=== PATIENT | male | born 1960 | race Hispanic/Latino ===

== ENCOUNTER 2023-01-09 15:28 | Inpatient (IN) | payer SELFPAY ==
[~2023-01-09] VITALS: Ht 175.3 cm; Wt 79.0 kg
[2023-01-09] VITALS (18 sets, daily range): BP systolic 85–120; BP diastolic 56–67
[2023-01-09] MEDS ORDERED: SODIUM CHLORIDE 0.9% 1000ML 1,000 ML IV ONE (15:45)
[2023-01-09] MEDS ORDERED: CEFTRIAXONE 1 GM VIAL IV ONE (15:45)
[2023-01-09 15:58] LABS: BASOPHILS # (AUTO) 0.1 (0.0-0.1); BASOPHILS % 0.7 % (0.0-1.0); EOSINOPHILS % 0.1 % (0.0-6.0); HEMATOCRIT 34.9 % (38.2-49.6); HEMOGLOBIN 11.6 g/dL (14.0-18.0); LYMPHOCYTES # (AUTO) 0.4 (1.0-3.2); LYMPHOCYTES % 2.7 % (18.0-39.1); MEAN CORPUSCULAR HGB CONC 33.2 g/dL (31-35); MEAN CORPUSCULAR VOLUME 96.4 fL (81-99); MONOCYTES # (AUTO) 0.8 (0.2-0.8); MONOCYTES % 5.6 % (4.4-11.3); NEUTROPHILS # (AUTO) 13.7 (2.1-6.9); NEUTROPHILS % 90.4 % (38.7-80.0); PLATELET COUNT 383 x10e3/uL (140-360); RED BLOOD COUNT 3.62 x10e6/uL (4.3-5.7); RED CELL DISTRIBUTION WIDTH 12.3 % (11.7-14.4)
[2023-01-09] MEDS ORDERED: ACETAMINOPHEN 325 MG TAB PO ONE (16:00)
[2023-01-09 16:05] LABS: INR 1.13; PROTHROMBIN TIME 14.7 seconds (11.9-14.5)
[2023-01-09 16:06] LABS: PARTIAL THROMBOPLASTIN TIME 36.3 seconds (23.8-35.5)
[2023-01-09] MEDS ORDERED: CEFTRIAXONE 1 GM VIAL ONE (16:06)
[2023-01-09 16:14] LABS: ALBUMIN 3.5 g/dL (3.5-5.0); ALBUMIN/GLOBULIN RATIO 0.6 (0.8-2.0); ANION GAP 16.2 mmol/L (8-16); CALCIUM 10.1 mg/dL (8.4-10.2); CREATININE, SERUM 4.5 mg/dL (0.72-1.25)
[2023-01-09 16:16] LABS: POTASSIUM 6.2 mmol/L (3.5-5.1)
[2023-01-09] MEDS ORDERED: DEXTROSE 50% SYRINGE 50 ML IV STA (16:16)
[2023-01-09] MEDS ORDERED: ALBUTEROL SULF 0.083% NEB SOLN 3 ML NEB NEB STA (16:16)
[2023-01-09 16:22] LABS: CLARITY,URINE HAZY (CLEAR); COLOR,URINE YELLOW (YELLOW); KETONES,URINE NEGATIVE (NEGATIVE); LEUKOCYTE ESTERASE ,URINE MODERATE (NEGATIVE); NITRITE,URINE NEGATIVE (NEGATIVE); PROTEIN,URINE DIPSTICK NEGATIVE (NEGATIVE); URINE UROBILINOGEN 0.2 mg/dL (0.2 - 1)
[2023-01-09] MEDS ORDERED: CALCIUM GLUC 1 G/50 ML NACL 100 ML IV ONE (16:30)
[2023-01-09] MEDS ORDERED: INSULIN REGULAR, HUMAN 100 UNIT/1 ML IV ONE (16:30)
[2023-01-09] MEDS ORDERED: SODIUM BICARBONATE 8.4% INJ 50 ML SYR IV ONE (16:30)
[2023-01-09 16:48] LABS: BACTERIA,URINE MODERATE /HPF; MUCUS,URINE MANY (RARE); WBC,URINE (MAN) 21-50 /HPF (0-5)
[2023-01-09] MEDS ORDERED: ONDANSETRON HCL INJ 2MG/ML 2ML 2 MG/ML VIAL IV PRN (17:00)
[2023-01-09] MEDS ORDERED: SOD POLYSTYRENE SULFONATE SUSP 15 GM/60 ML BTL PO ONE (17:15)
[2023-01-09] MEDS ORDERED: FUROSEMIDE INJ 10 MG/ML 4 ML VIAL IV ONE (17:15)
[2023-01-09] MEDS ORDERED: ZOLPIDEM TARTRATE 5 MG TAB PO PRN (17:15)
[2023-01-09] MEDS ORDERED: Vancomycin IV 1 GM in SODIUM CHLORIDE 0.9% 250ML 250 ML IV ONE (17:15)
[2023-01-09] MEDS ORDERED: ACETAMINOPHEN 325 MG TAB PO PRN (17:30)
[2023-01-09 17:54] LABS: ABG HCO3 17 mmol/L (22-26); ABG PCO2 28 mmHg (35-45); ABG PO2 88 mmHg (80-105); ABG TCO2 18
[2023-01-09] MEDS ORDERED: PHENAZOPYRIDINE HCL 100 MG TAB PO PRN (19:15)
[2023-01-09] MEDS ORDERED: Morphine 4mg INJECTION 4 MG/ML INJ IV PRN (19:15)
[2023-01-09] MEDS: PHENAZOPYRIDINE HCL 100 MG TAB PO PRN (19:40)
[2023-01-09] MEDS: SODIUM CHLORIDE 0.9% 1000ML 1,000 ML IV SCH (19:41)
[2023-01-09] MEDS: TAMSULOSIN HCL 0.4 MG CAP PO SCH (19:41)
[2023-01-09] MEDS: Morphine 4mg INJECTION 4 MG/ML INJ IV PRN ×2 (19:42→23:20)
[2023-01-10] VITALS (46 sets, daily range): BP systolic 79–135; BP diastolic 53–84
[2023-01-10] MEDS ORDERED: FLOMAX0.4 MG PO (00:46)
[2023-01-10] MEDS ORDERED: METOPROLOL SUCC25 MG PO (00:46)
[2023-01-10] MEDS ORDERED: LISINOPRIL10 MG PO (00:46)
[2023-01-10] MEDS: SODIUM CHLORIDE 0.9% 1000ML 1,000 ML IV SCH ×3 (02:16→22:28)
[2023-01-10] MEDS: PHENAZOPYRIDINE HCL 100 MG TAB PO PRN ×2 (02:16→17:23)
[2023-01-10] MEDS: Morphine 4mg INJECTION 4 MG/ML INJ IV PRN ×2 (04:36→08:30)
[2023-01-10 07:12] LABS: BASOPHILS # (AUTO) 0.1 (0.0-0.1); BASOPHILS % 0.9 % (0.0-1.0); EOSINOPHILS # (AUTO) 0.1 (0.0-0.4); EOSINOPHILS % 0.4 % (0.0-6.0); HEMATOCRIT 30.9 % (38.2-49.6); HEMOGLOBIN 10.3 g/dL (14.0-18.0); MEAN CORPUSCULAR HEMOGLOBIN 32.2 pg (28-32); MEAN CORPUSCULAR HGB CONC 33.3 g/dL (31-35); MEAN CORPUSCULAR VOLUME 96.6 fL (81-99); MONOCYTES # (AUTO) 1.1 (0.2-0.8); MONOCYTES % 7.5 % (4.4-11.3); NEUTROPHILS # (AUTO) 11.7 (2.1-6.9); NEUTROPHILS % 83.7 % (38.7-80.0); PLATELET COUNT 341 x10e3/uL (140-360); RED CELL DISTRIBUTION WIDTH 12.5 % (11.7-14.4)
[2023-01-10 07:51] LABS: ALBUMIN 2.8 g/dL (3.5-5.0); ALBUMIN/GLOBULIN RATIO 0.6 (0.8-2.0); ANION GAP 14.7 mmol/L (8-16); CALCIUM 9.1 mg/dL (8.4-10.2); CREATININE, SERUM 3.67 mg/dL (0.72-1.25); POTASSIUM 5.7 mmol/L (3.5-5.1)
[2023-01-10] MEDS: HYDROCODONE/APAP 5MG-325MG TAB PO PRN ×3 (12:30→20:40)
[2023-01-10] MEDS ORDERED: FUROSEMIDE INJ 10 MG/ML 4 ML VIAL IV ONE (17:45)
[2023-01-10] MEDS ORDERED: SOD POLYSTYRENE SULFONATE SUSP 15 GM/60 ML BTL PO ONE (17:45)
[2023-01-10] MEDS: TAMSULOSIN HCL 0.4 MG CAP PO SCH (20:38)
[2023-01-11] VITALS (12 sets, daily range): BP systolic 78–103; BP diastolic 54–64
[2023-01-11] MEDS: HYDROCODONE/APAP 5MG-325MG TAB PO PRN ×3 (00:48→11:25)
[2023-01-11] MEDS: SODIUM CHLORIDE 0.9% 1000ML 1,000 ML IV SCH ×2 (01:00→06:24)
[2023-01-11] MEDS: PHENAZOPYRIDINE HCL 100 MG TAB PO PRN (01:40)
[2023-01-11 05:25] LABS: ANION GAP 14.8 mmol/L (8-16); CALCIUM 8.9 mg/dL (8.4-10.2); CREATININE, SERUM 3.19 mg/dL (0.72-1.25); POTASSIUM 4.8 mmol/L (3.5-5.1)
== END 2023-01-11 12:41 | disposition home or self-care (01) | DRG 726 ==
LOC: ER 15:32 → ERHOLD 16:56 → ICU 18:25
PROVIDERS: ADMIT Internal Medicine; ATTEND Internal Medicine
PROC: 0T9B70Z Drainage of Bladder with Drainage Device, Via Natural or Artificial Opening (ICD-10-PCS; principal; 2023-01-09)
DX: N40.1 Benign prostatic hyperplasia with lower urinary tract symptoms (principal); N17.9 Acute kidney failure, unspecified; E87.20 Acidosis, unspecified; N13.8 Other obstructive and reflux uropathy; N39.0 Urinary tract infection, site not specified; E87.1 Hypo-osmolality and hyponatremia; R33.8 Other retention of urine; I12.9 Hypertensive chronic kidney disease with stage 1 through stage 4 chronic kidney disease, or unspecified chronic kidney disease; N18.9 Chronic kidney disease, unspecified; E87.5 Hyperkalemia; E11.22 Type 2 diabetes mellitus with diabetic chronic kidney disease; R31.9 Hematuria, unspecified; Z20.822 Contact with and (suspected) exposure to COVID-19; Z87.891 Personal history of nicotine dependence
CPT/HCPCS: 36415; 36600; 51700; 71045; 76770; 80048; 80053; 81001; 82805; 82948; 83605; 84152; 85025; 85610; 85730; 87040; 87086; 87186; 87400; 93005; 99252; 99284; J0692; J0696; J1817; J1940; J2270; J2405; J3370; J7030; J7050; J7799

== ENCOUNTER 2023-02-12 14:34 | Emergency (ER) | payer MEDICARE ==
[~2023-02-12] VITALS: Ht 175.3 cm; Wt 78.9 kg
[~2023-02-12 14:34] MED LIST: FLOMAX0.4 MG PO; LISINOPRIL10 MG PO; METOPROLOL SUCC25 MG PO
[2023-02-12] MEDS ORDERED: SODIUM CHLORIDE 0.9% 1000ML 1,000 ML IV SCH (15:00)
[2023-02-12 15:07] LABS: BASOPHILS # (AUTO) 0.1 (0.0-0.1); BASOPHILS % 0.7 % (0.0-1.0); EOSINOPHILS # (AUTO) 0.1 (0.0-0.4); EOSINOPHILS % 0.8 % (0.0-6.0); HEMATOCRIT 32.1 % (38.2-49.6); HEMOGLOBIN 10.3 g/dL (14.0-18.0); LYMPHOCYTES # (AUTO) 2.1 (1.0-3.2); LYMPHOCYTES % 17.1 % (18.0-39.1); MEAN CORPUSCULAR HEMOGLOBIN 30.5 pg (28-32); MEAN CORPUSCULAR HGB CONC 32.1 g/dL (31-35); MONOCYTES # (AUTO) 1.4 (0.2-0.8); MONOCYTES % 11.5 % (4.4-11.3); NEUTROPHILS # (AUTO) 8.6 (2.1-6.9); NEUTROPHILS % 69.6 % (38.7-80.0); PLATELET COUNT 268 x10e3/uL (140-360); RED BLOOD COUNT 3.38 x10e6/uL (4.3-5.7); RED CELL DISTRIBUTION WIDTH 13.2 % (11.7-14.4)
[2023-02-12] MEDS ORDERED: CEFTRIAXONE 2 GM VIAL ONE (15:18)
[2023-02-12] MEDS ORDERED: ACETAMINOPHEN 325 MG TAB ONE (15:18)
[2023-02-12 15:22] LABS: ALBUMIN 3.3 g/dL (3.5-5.0); ALBUMIN/GLOBULIN RATIO 0.6 (0.8-2.0); ANION GAP 17.3 mmol/L (8-16); CALCIUM 9.5 mg/dL (8.4-10.2); POTASSIUM 4.3 mmol/L (3.5-5.1)
[2023-02-12 15:32] LABS: CLARITY,URINE TURBID (CLEAR); COLOR,URINE YELLOW (YELLOW); LEUKOCYTE ESTERASE ,URINE LARGE (NEGATIVE); NITRITE,URINE NEGATIVE (NEGATIVE)
[2023-02-12 15:33] LABS: KETONES,URINE NEGATIVE (NEGATIVE); PROTEIN,URINE DIPSTICK 1+ (NEGATIVE); URINE UROBILINOGEN 0.2 mg/dL (0.2 - 1)
[2023-02-12 15:40] LABS: BACTERIA,URINE FEW /HPF; EPITHELIAL CELLS,URINE FEW /LPF; WBC,URINE (MAN) >50 /HPF (0-5)
[2023-02-12] MEDS ORDERED: LIDOCAINE JELLY 2% 10ML URO-JET ONE (16:15)
[2023-02-12] MEDS ORDERED: LACTATED RINGER'S 1,000 ML INJ ONE (17:15)
[2023-02-12] MEDS ORDERED: SODIUM CHLORIDE 0.9% 1000ML 1,000 ML ONE (17:23)
[2023-02-13] MEDS ORDERED: CEFDINIR300 MG PO (11:58)
== END 2023-02-12 18:15 | disposition short-term general hospital (02) ==
LOC: ER 14:43
DX: N39.0 Urinary tract infection, site not specified (principal); U07.1 COVID-19; R00.0 Tachycardia, unspecified; I10 Essential (primary) hypertension; Z79.899 Other long term (current) drug therapy
CPT/HCPCS: 36415; 51700; 71045; 80053; 81001; 83605; 85025; 87040; 87086; 87186; 93005; 99284; J0696; J7030; U0002

== ENCOUNTER 2023-02-13 10:26 | Emergency (ER) | payer MEDICARE ==
[~2023-02-13] VITALS: Ht 175.3 cm; Wt 78.9 kg
[2023-02-13 11:16] LABS: BASOPHILS # (AUTO) 0.1 (0.0-0.1); BASOPHILS % 0.5 % (0.0-1.0); EOSINOPHILS # (AUTO) 0.2 (0.0-0.4); EOSINOPHILS % 1.5 % (0.0-6.0); HEMATOCRIT 31.3 % (38.2-49.6); HEMOGLOBIN 10.1 g/dL (14.0-18.0); LYMPHOCYTES # (AUTO) 1.6 (1.0-3.2); MEAN CORPUSCULAR HGB CONC 32.3 g/dL (31-35); MONOCYTES # (AUTO) 1.1 (0.2-0.8); MONOCYTES % 9.1 % (4.4-11.3); NEUTROPHILS # (AUTO) 8.6 (2.1-6.9); NEUTROPHILS % 74.5 % (38.7-80.0); PLATELET COUNT 307 x10e3/uL (140-360); RED BLOOD COUNT 3.26 x10e6/uL (4.3-5.7); RED CELL DISTRIBUTION WIDTH 13.2 % (11.7-14.4)
[2023-02-13 11:33] LABS: ANION GAP 13.9 mmol/L (8-16); CALCIUM 9.5 mg/dL (8.4-10.2); CREATININE, SERUM 1.87 mg/dL (0.72-1.25); POTASSIUM 3.9 mmol/L (3.5-5.1)
[2023-02-13] MEDS ORDERED: CEFDINIR300 MG PO (11:58)
[2023-02-13 12:31] VITALS: BP 114/68
== END 2023-02-13 12:32 | disposition home or self-care (01) ==
LOC: ER 10:36
DX: N39.0 Urinary tract infection, site not specified (principal); I10 Essential (primary) hypertension
CPT/HCPCS: 36415; 80048; 85025; 99284

== ENCOUNTER 2023-03-02 10:53 | Inpatient (IN) | payer MEDICARE ==
[~2023-03-02] VITALS: Ht 175.3 cm; Wt 78.9 kg
[~2023-03-02 10:53] MED LIST changes: +CEFDINIR300 MG PO
[2023-03-02] MEDS ORDERED: KETOROLAC TROMETHAMINE 30 MG/ML VIAL IV STA (11:41)
[2023-03-02] MEDS ORDERED: ACETAMINOPHEN 325 MG TAB ONE (11:42)
[2023-03-02] MEDS ORDERED: SODIUM CHLORIDE 0.9% 1000ML 1,000 ML IV SCH ×2 (11:45→12:45)
[2023-03-02] MEDS ORDERED: ACETAMINOPHEN 325 MG TAB PO ONE ×2 (11:45→19:45)
[2023-03-02 12:36] LABS: BASOPHILS # (AUTO) 0.1 (0.0-0.1); BASOPHILS % 0.4 % (0.0-1.0); EOSINOPHILS % 0.2 % (0.0-6.0); HEMOGLOBIN 11.4 g/dL (14.0-18.0); LYMPHOCYTES # (AUTO) 1.5 (1.0-3.2); LYMPHOCYTES % 10.8 % (18.0-39.1); MEAN CORPUSCULAR HGB CONC 33.5 g/dL (31-35); MEAN CORPUSCULAR VOLUME 92.4 fL (81-99); MONOCYTES # (AUTO) 1.5 (0.2-0.8); MONOCYTES % 10.5 % (4.4-11.3); NEUTROPHILS # (AUTO) 10.8 (2.1-6.9); NEUTROPHILS % 77.7 % (38.7-80.0); PLATELET COUNT 209 x10e3/uL (140-360); RED BLOOD COUNT 3.68 x10e6/uL (4.3-5.7); RED CELL DISTRIBUTION WIDTH 14.9 % (11.7-14.4)
[2023-03-02 13:01] LABS: ALBUMIN 3.5 g/dL (3.5-5.0); ALBUMIN/GLOBULIN RATIO 0.7 (0.8-2.0); ANION GAP 15.1 mmol/L (8-16); CALCIUM 9.5 mg/dL (8.4-10.2); CREATININE, SERUM 2.17 mg/dL (0.72-1.25); POTASSIUM 4.1 mmol/L (3.5-5.1)
[2023-03-02] MEDS: SODIUM CHLORIDE 0.9% 1000ML 1,000 ML IV SCH ×2 (13:02→21:53)
[2023-03-02 14:12] LABS: COLOR,URINE YELLOW (YELLOW)
[2023-03-02 14:13] LABS: CLARITY,URINE HAZY (CLEAR); KETONES,URINE NEGATIVE (NEGATIVE); LEUKOCYTE ESTERASE ,URINE LARGE (NEGATIVE); NITRITE,URINE NEGATIVE (NEGATIVE); PROTEIN,URINE DIPSTICK 2+ (NEGATIVE); URINE UROBILINOGEN 0.2 mg/dL (0.2 - 1)
[2023-03-02 14:28] LABS: BACTERIA,URINE FEW /HPF; WBC,URINE (MAN) >50 /HPF (0-5)
[2023-03-02 18:09] VITALS: BP 138/83
[2023-03-02 20:00] VITALS: BP 138/83
[2023-03-02 20:51] VITALS: BP 122/71
[2023-03-02] MEDS ORDERED: HYDRALAZINE HCL 20 MG/ML VIAL IV PRN (22:45)
[2023-03-02] MEDS ORDERED: ONDANSETRON HCL INJ 2MG/ML 2ML 2 MG/ML VIAL IV PRN (22:45)
[2023-03-02] MEDS ORDERED: HYDROCODONE/APAP 7.5MG-325MG 1 EA TAB PO PRN (22:45)
[2023-03-02] MEDS ORDERED: MAGNESIUM HYDROXIDE 30 ML UDC PO PRN (22:45)
[2023-03-02 23:25] VITALS: BP 122/71
[2023-03-02] MEDS: METOPROLOL SUCCINATE 25 MG TAB XL PO SCH (23:53)
[2023-03-03] VITALS (7 sets, daily range): BP systolic 98–153; BP diastolic 56–82
[2023-03-03] MEDS: SODIUM CHLORIDE 0.9% 1000ML 1,000 ML IV SCH ×2 (05:10→14:48)
[2023-03-03 06:39] LABS: BASOPHILS # (AUTO) 0.1 (0.0-0.1); BASOPHILS % 0.6 % (0.0-1.0); EOSINOPHILS # (AUTO) 0.1 (0.0-0.4); EOSINOPHILS % 0.6 % (0.0-6.0); HEMATOCRIT 28.9 % (38.2-49.6); HEMOGLOBIN 9.5 g/dL (14.0-18.0); LYMPHOCYTES % 12.9 % (18.0-39.1); MEAN CORPUSCULAR HEMOGLOBIN 30.6 pg (28-32); MEAN CORPUSCULAR HGB CONC 32.9 g/dL (31-35); MEAN CORPUSCULAR VOLUME 93.2 fL (81-99); MONOCYTES % 12.8 % (4.4-11.3); NEUTROPHILS # (AUTO) 5.6 (2.1-6.9); NEUTROPHILS % 72.8 % (38.7-80.0); PLATELET COUNT 153 x10e3/uL (140-360); RED CELL DISTRIBUTION WIDTH 14.7 % (11.7-14.4)
[2023-03-03 06:50] LABS: ANION GAP 11.3 mmol/L (8-16); CALCIUM 8.8 mg/dL (8.4-10.2); CREATININE, SERUM 2.1 mg/dL (0.72-1.25); POTASSIUM 4.3 mmol/L (3.5-5.1)
[2023-03-03] MEDS: SENNA-S TABLET PO SCH ×2 (09:00→17:00)
[2023-03-03] MEDS: TAMSULOSIN HCL 0.4 MG CAP PO SCH ×2 (10:00→18:11)
[2023-03-03] MEDS: METOPROLOL SUCCINATE 25 MG TAB XL PO SCH ×2 (10:01→18:11)
[2023-03-03] MEDS: ACETAMINOPHEN 325 MG TAB PO PRN (18:11)
[2023-03-04] VITALS (8 sets, daily range): BP systolic 107–131; BP diastolic 58–79
[2023-03-04] MEDS: SODIUM CHLORIDE 0.9% 1000ML 1,000 ML IV SCH ×2 (03:09→17:10)
[2023-03-04 05:20] LABS: BASOPHILS # (AUTO) 0.1 (0.0-0.1); EOSINOPHILS # (AUTO) 0.2 (0.0-0.4); EOSINOPHILS % 3.9 % (0.0-6.0); HEMATOCRIT 32.8 % (38.2-49.6); HEMOGLOBIN 10.6 g/dL (14.0-18.0); LYMPHOCYTES % 17.7 % (18.0-39.1); MEAN CORPUSCULAR HEMOGLOBIN 30.6 pg (28-32); MEAN CORPUSCULAR HGB CONC 32.3 g/dL (31-35); MEAN CORPUSCULAR VOLUME 94.8 fL (81-99); MONOCYTES # (AUTO) 0.7 (0.2-0.8); MONOCYTES % 12.6 % (4.4-11.3); NEUTROPHILS # (AUTO) 3.8 (2.1-6.9); NEUTROPHILS % 64.5 % (38.7-80.0); PLATELET COUNT 171 x10e3/uL (140-360); RED BLOOD COUNT 3.46 x10e6/uL (4.3-5.7); RED CELL DISTRIBUTION WIDTH 14.5 % (11.7-14.4)
[2023-03-04 05:47] LABS: ANION GAP 15.1 mmol/L (8-16); CALCIUM 9.5 mg/dL (8.4-10.2); CREATININE, SERUM 1.91 mg/dL (0.72-1.25); POTASSIUM 4.1 mmol/L (3.5-5.1)
[2023-03-04] MEDS: SENNA-S TABLET PO SCH ×2 (09:00→17:00)
[2023-03-04] MEDS: TAMSULOSIN HCL 0.4 MG CAP PO SCH ×2 (09:34→17:11)
[2023-03-04] MEDS: METOPROLOL SUCCINATE 25 MG TAB XL PO SCH ×2 (09:34→17:11)
[2023-03-04] MEDS: ACETAMINOPHEN 325 MG TAB PO PRN (17:11)
[2023-03-05] VITALS (7 sets, daily range): BP systolic 100–133; BP diastolic 61–85
[2023-03-05] MEDS: SODIUM CHLORIDE 0.9% 1000ML 1,000 ML IV SCH (05:40)
[2023-03-05] MEDS: TAMSULOSIN HCL 0.4 MG CAP PO SCH ×2 (08:16→16:25)
[2023-03-05] MEDS: METOPROLOL SUCCINATE 25 MG TAB XL PO SCH ×2 (08:16→16:25)
[2023-03-05] MEDS: SENNA-S TABLET PO SCH ×2 (08:16→16:26)
[2023-03-05] MEDS ORDERED: ONDANSETRON HCL 4 MG ORAL DISINTEGRATING TAB PO PRN (13:00)
[2023-03-06 00:08] VITALS: BP 127/73
[2023-03-06] MEDS: SODIUM CHLORIDE 0.9% 1000ML 1,000 ML IV SCH ×3 (00:48→21:24)
[2023-03-06 04:49] VITALS: BP 119/84
[2023-03-06 08:28] VITALS: BP 127/74
[2023-03-06] MEDS: METOPROLOL SUCCINATE 25 MG TAB XL PO SCH ×2 (10:16→16:40)
[2023-03-06] MEDS: SENNA-S TABLET PO SCH ×2 (10:16→16:38)
[2023-03-06] MEDS: TAMSULOSIN HCL 0.4 MG CAP PO SCH ×2 (10:17→16:38)
[2023-03-06 11:47] VITALS: BP 142/77
[2023-03-06 15:48] VITALS: BP 134/76
[2023-03-06 19:35] VITALS: BP 147/97
[2023-03-07] VITALS: BP 149/86
[2023-03-07 04:00] VITALS: BP 140/80
[2023-03-07 07:23] VITALS: BP 139/99
[2023-03-07 07:35] VITALS: BP 139/99
[2023-03-07] MEDS: TAMSULOSIN HCL 0.4 MG CAP PO SCH (09:20)
[2023-03-07] MEDS: SENNA-S TABLET PO SCH (09:20)
[2023-03-07] MEDS: METOPROLOL SUCCINATE 25 MG TAB XL PO SCH (09:21)
[2023-03-07] MEDS: SODIUM CHLORIDE 0.9% 1000ML 1,000 ML IV SCH (10:53)
[2023-03-07 11:35] VITALS: BP 136/80
== END 2023-03-07 12:12 | disposition home or self-care (01) | DRG 872 ==
LOC: ER 10:58 → ERHOLD 12:40 → MED/SURG2 18:01
PROVIDERS: ADMIT Internal Medicine; ATTEND Internal Medicine
PROC: 02HV33Z Insertion of Infusion Device into Superior Vena Cava, Percutaneous Approach (ICD-10-PCS; principal; 2023-03-06)
DX: A41.51 Sepsis due to Escherichia coli [E. coli] (principal); N39.0 Urinary tract infection, site not specified; T83.511A Infection and inflammatory reaction due to indwelling urethral catheter, initial encounter; N40.0 Benign prostatic hyperplasia without lower urinary tract symptoms; I10 Essential (primary) hypertension; R00.0 Tachycardia, unspecified; B96.5 Pseudomonas (aeruginosa) (mallei) (pseudomallei) as the cause of diseases classified elsewhere
CPT/HCPCS: 0223U; 36415; 71045; 74176; 80048; 80053; 81001; 83605; 85025; 87040; 87071; 87086; 87186; 87205; 94799; 96361; 99284; J0692; J0696; J1885; J2185; J7030

== ENCOUNTER 2023-03-19 12:15 | Inpatient (IN) | payer MEDICARE ==
[2023-03-16 11:20] LABS: BASOPHILS # (AUTO) 0.1 (0.0-0.1); BASOPHILS % 1.4 % (0.0-1.0); EOSINOPHILS # (AUTO) 0.3 (0.0-0.4); EOSINOPHILS % 4.7 % (0.0-6.0); HEMATOCRIT 34.9 % (38.2-49.6); HEMOGLOBIN 11.6 g/dL (14.0-18.0); LYMPHOCYTES # (AUTO) 1.9 (1.0-3.2); LYMPHOCYTES % 28.8 % (18.0-39.1); MEAN CORPUSCULAR HEMOGLOBIN 30.2 pg (28-32); MEAN CORPUSCULAR HGB CONC 33.2 g/dL (31-35); MEAN CORPUSCULAR VOLUME 90.9 fL (81-99); MONOCYTES # (AUTO) 0.5 (0.2-0.8); MONOCYTES % 7.3 % (4.4-11.3); NEUTROPHILS # (AUTO) 3.8 (2.1-6.9); NEUTROPHILS % 57.5 % (38.7-80.0); PLATELET COUNT 319 x10e3/uL (140-360); RED BLOOD COUNT 3.84 x10e6/uL (4.3-5.7); RED CELL DISTRIBUTION WIDTH 14.7 % (11.7-14.4)
[~2023-03-19] VITALS: Ht 172.7 cm; Wt 83.9 kg
[~2023-03-19 12:15] MED LIST changes: +DEXAMETHASONE SOD PHOS INJ 4 MG/ML SDV ONE; +LIDOCAINE HCL 2% LOCAL INJ 5 ML SDV VIAL INJ ONE; +LISINOPRIL5 MG PO; +ONDANSETRON HCL INJ 2MG/ML 2ML 2 MG/ML VIAL ONE; +POVIDONE IODINE 0.05% 0.05 % ML PO ONE; +PROPOFOL IV EMULSION 10 MG/ML 20 ML VIAL ONE; +SEVOFLURANE INHAL SOLN 250 ML PEN BTL ONE
[2023-03-19] MEDS ORDERED: MIDAZOLAM HCL 2 MG/2 ML VIAL ONE (12:16)
[2023-03-19] MEDS ORDERED: KETAMINE HCL INJ 50 MG/ML 10 ML VIAL ONE (12:16)
[2023-03-19] MEDS ORDERED: FENTANYL CITRATE/PF 100MCG/2 ML INJ ONE (12:16)
[2023-03-19] MEDS ORDERED: GENTAMICIN 80MG/NS 100 ML 200 ML IV ONE (12:19)
[2023-03-19] MEDS ORDERED: PIPERACILLIN/TAZOBACTAM 3.375 GM VIAL ONE (12:19)
[2023-03-19] MEDS ORDERED: SODIUM CHLORIDE 0.9% 1000ML 1,000 ML ONE (12:20)
[2023-03-19] MEDS ORDERED: IOPAMIDOL 610MG/1ML 300 MG/ML VIAL IV ONE (13:25)
[2023-03-19] MEDS ORDERED: DIPHENHYDRAMINE HCL 25 MG CAP PO PRN (16:30)
[2023-03-19] MEDS ORDERED: ONDANSETRON HCL INJ 2MG/ML 2ML 2 MG/ML VIAL IV PRN (16:30)
[2023-03-19] MEDS ORDERED: ACETAMINOPHEN/CODEINE 300MG - 30MG TAB PO PRN (16:30)
[2023-03-19] MEDS: MEPERIDINE HCL INJ 25 MG/ML VIAL ONE ×2 (16:30→16:45)
[2023-03-19] MEDS ORDERED: ACETAMINOPHEN 1000 MG/100 ML IV PRN (16:30)
[2023-03-19] MEDS ORDERED: Morphine 2mg Syringe 2 MG/ML SYR IV PRN (16:30)
[2023-03-19 16:50] LABS: BASOPHILS # (AUTO) 0.1 (0.0-0.1); BASOPHILS % 0.6 % (0.0-1.0); EOSINOPHILS # (AUTO) 0.1 (0.0-0.4); EOSINOPHILS % 0.7 % (0.0-6.0); HEMATOCRIT 33.3 % (38.2-49.6); HEMOGLOBIN 10.9 g/dL (14.0-18.0); LYMPHOCYTES # (AUTO) 1.3 (1.0-3.2); LYMPHOCYTES % 8.7 % (18.0-39.1); MEAN CORPUSCULAR HEMOGLOBIN 30.6 pg (28-32); MEAN CORPUSCULAR HGB CONC 32.7 g/dL (31-35); MEAN CORPUSCULAR VOLUME 93.5 fL (81-99); MONOCYTES # (AUTO) 0.2 (0.2-0.8); MONOCYTES % 1.2 % (4.4-11.3); NEUTROPHILS # (AUTO) 12.8 (2.1-6.9); NEUTROPHILS % 88.6 % (38.7-80.0); PLATELET COUNT 237 x10e3/uL (140-360); RED BLOOD COUNT 3.56 x10e6/uL (4.3-5.7); RED CELL DISTRIBUTION WIDTH 14.6 % (11.7-14.4)
[2023-03-19 17:05] LABS: ANION GAP 13.1 mmol/L (8-16); CALCIUM 8.9 mg/dL (8.4-10.2); CREATININE, SERUM 1.66 mg/dL (0.72-1.25); POTASSIUM 4.1 mmol/L (3.5-5.1)
[2023-03-19 17:55] VITALS: BP 126/83
[2023-03-19] MEDS: DOCUSATE SODIUM 100 MG CAP PO SCH ×3 (18:00→18:46)
[2023-03-19] MEDS: SODIUM CHLORIDE 0.9% 1000ML 1,000 ML IV SCH ×2 (18:46→23:15)
[2023-03-19 19:30] VITALS: BP 133/79
[2023-03-19 20:00] VITALS: BP 133/79
[2023-03-19 20:11] VITALS: BP 133/79
[2023-03-19 23:44] VITALS: BP 103/73
[2023-03-20] VITALS (7 sets, daily range): BP systolic 107–135; BP diastolic 72–79
[2023-03-20 04:37] LABS: BASOPHILS % 0.4 % (0.0-1.0); HEMATOCRIT 24.4 % (38.2-49.6); LYMPHOCYTES # (AUTO) 0.9 (1.0-3.2); LYMPHOCYTES % 8.1 % (18.0-39.1); MEAN CORPUSCULAR HEMOGLOBIN 30.7 pg (28-32); MEAN CORPUSCULAR HGB CONC 32.8 g/dL (31-35); MEAN CORPUSCULAR VOLUME 93.5 fL (81-99); MONOCYTES # (AUTO) 0.4 (0.2-0.8); MONOCYTES % 3.8 % (4.4-11.3); NEUTROPHILS # (AUTO) 9.3 (2.1-6.9); NEUTROPHILS % 87.3 % (38.7-80.0); PLATELET COUNT 249 x10e3/uL (140-360); RED BLOOD COUNT 2.61 x10e6/uL (4.3-5.7); RED CELL DISTRIBUTION WIDTH 14.7 % (11.7-14.4)
[2023-03-20 04:54] LABS: ANION GAP 12.6 mmol/L (8-16); CALCIUM 8.5 mg/dL (8.4-10.2); CREATININE, SERUM 1.78 mg/dL (0.72-1.25); POTASSIUM 4.6 mmol/L (3.5-5.1)
[2023-03-20] MEDS: DOCUSATE SODIUM 100 MG CAP PO SCH ×2 (09:53→16:02)
[2023-03-20] MEDS ORDERED: TAMSULOSIN HCL 0.4 MG CAP PO PRN (10:15)
[2023-03-20] MEDS: METOPROLOL SUCCINATE 25 MG TAB XL PO SCH (16:02)
[2023-03-20] MEDS: SODIUM CHLORIDE 0.9% 1000ML 1,000 ML IV SCH (19:31)
[2023-03-21] VITALS (8 sets, daily range): BP systolic 118–141; BP diastolic 63–77
[2023-03-21 05:02] LABS: BASOPHILS # (AUTO) 0.1 (0.0-0.1); BASOPHILS % 0.9 % (0.0-1.0); EOSINOPHILS # (AUTO) 0.2 (0.0-0.4); EOSINOPHILS % 2.2 % (0.0-6.0); LYMPHOCYTES # (AUTO) 1.3 (1.0-3.2); LYMPHOCYTES % 19.5 % (18.0-39.1); MEAN CORPUSCULAR HEMOGLOBIN 30.4 pg (28-32); MEAN CORPUSCULAR HGB CONC 33.2 g/dL (31-35); MEAN CORPUSCULAR VOLUME 91.8 fL (81-99); MONOCYTES # (AUTO) 0.6 (0.2-0.8); MONOCYTES % 8.2 % (4.4-11.3); NEUTROPHILS # (AUTO) 4.7 (2.1-6.9); NEUTROPHILS % 69.1 % (38.7-80.0); PLATELET COUNT 178 x10e3/uL (140-360); RED BLOOD COUNT 2.07 x10e6/uL (4.3-5.7); RED CELL DISTRIBUTION WIDTH 14.7 % (11.7-14.4)
[2023-03-21 05:07] LABS: HEMOGLOBIN 6.3 g/dL (14.0-18.0)
[2023-03-21 05:13] LABS: CALCIUM 8.3 mg/dL (8.4-10.2); CREATININE, SERUM 1.63 mg/dL (0.72-1.25)
[2023-03-21] MEDS: SODIUM CHLORIDE 0.9% 1000ML 1,000 ML IV SCH (05:19)
[2023-03-21] MEDS ORDERED: ACETAMINOPHEN 325 MG TAB PO STA (07:14)
[2023-03-21] MEDS ORDERED: SODIUM CHLORIDE 0.9% 250ML 250 ML IV ONE (07:15)
[2023-03-21] MEDS ORDERED: FUROSEMIDE INJ 10 MG/ML 2 ML VIAL IV PRN (07:15)
[2023-03-21] MEDS ORDERED: DIPHENHYDRAMINE HCL INJ 50 MG/ML VIAL IV ONE (07:15)
[2023-03-21] MEDS: METOPROLOL SUCCINATE 25 MG TAB XL PO SCH ×2 (08:32→16:22)
[2023-03-21] MEDS: DOCUSATE SODIUM 100 MG CAP PO SCH ×2 (08:32→16:22)
[2023-03-21] MEDS ORDERED: ONDANSETRON HCL 4 MG ORAL DISINTEGRATING TAB PO PRN (12:30)
[2023-03-21] MEDS ORDERED: MAGNESIUM SULFATE 2GM/50ML 50 ML IV ONE ×2 (18:00→20:00)
[2023-03-22] VITALS (9 sets, daily range): BP systolic 112–155; BP diastolic 53–80
[2023-03-22 04:58] LABS: BASOPHILS # (AUTO) 0.1 (0.0-0.1); BASOPHILS % 1.1 % (0.0-1.0); EOSINOPHILS # (AUTO) 0.2 (0.0-0.4); HEMATOCRIT 25.6 % (38.2-49.6); HEMOGLOBIN 8.5 g/dL (14.0-18.0); LYMPHOCYTES # (AUTO) 1.4 (1.0-3.2); LYMPHOCYTES % 18.9 % (18.0-39.1); MEAN CORPUSCULAR HEMOGLOBIN 29.3 pg (28-32); MEAN CORPUSCULAR HGB CONC 33.2 g/dL (31-35); MEAN CORPUSCULAR VOLUME 88.3 fL (81-99); MONOCYTES # (AUTO) 0.7 (0.2-0.8); MONOCYTES % 9.7 % (4.4-11.3); NEUTROPHILS # (AUTO) 5.1 (2.1-6.9); PLATELET COUNT 165 x10e3/uL (140-360); RED CELL DISTRIBUTION WIDTH 17.4 % (11.7-14.4)
[2023-03-22 05:23] LABS: CREATININE, SERUM 1.61 mg/dL (0.72-1.25)
[2023-03-22] MEDS: SODIUM CHLORIDE 0.9% 1000ML 1,000 ML IV SCH (05:23)
[2023-03-22] MEDS: DOCUSATE SODIUM 100 MG CAP PO SCH ×2 (08:21→16:42)
[2023-03-22] MEDS: METOPROLOL SUCCINATE 25 MG TAB XL PO SCH ×2 (08:27→16:42)
[2023-03-22] MEDS: IRON SUCROSE 100 MG in SODIUM CHLORIDE 0.9% 100 ML IV SCH (09:21)
[2023-03-22] MEDS: PHENAZOPYRIDINE HCL 100 MG TAB PO PRN (19:12)
[2023-03-23] VITALS (7 sets, daily range): BP systolic 121–149; BP diastolic 65–82
[2023-03-23 04:56] LABS: BASOPHILS # (AUTO) 0.1 (0.0-0.1); EOSINOPHILS # (AUTO) 0.4 (0.0-0.4); EOSINOPHILS % 5.7 % (0.0-6.0); HEMATOCRIT 26.5 % (38.2-49.6); HEMOGLOBIN 8.9 g/dL (14.0-18.0); LYMPHOCYTES # (AUTO) 1.5 (1.0-3.2); LYMPHOCYTES % 23.8 % (18.0-39.1); MEAN CORPUSCULAR HEMOGLOBIN 29.6 pg (28-32); MEAN CORPUSCULAR HGB CONC 33.6 g/dL (31-35); MONOCYTES # (AUTO) 0.7 (0.2-0.8); MONOCYTES % 11.7 % (4.4-11.3); NEUTROPHILS # (AUTO) 3.6 (2.1-6.9); NEUTROPHILS % 57.5 % (38.7-80.0); PLATELET COUNT 196 x10e3/uL (140-360); RED BLOOD COUNT 3.01 x10e6/uL (4.3-5.7); RED CELL DISTRIBUTION WIDTH 16.6 % (11.7-14.4)
[2023-03-23 05:13] LABS: ANION GAP 12.4 mmol/L (8-16); CALCIUM 9.1 mg/dL (8.4-10.2); CREATININE, SERUM 1.53 mg/dL (0.72-1.25); POTASSIUM 4.4 mmol/L (3.5-5.1)
[2023-03-23] MEDS: DOCUSATE SODIUM 100 MG CAP PO SCH ×2 (09:03→17:16)
[2023-03-23] MEDS: METOPROLOL SUCCINATE 25 MG TAB XL PO SCH ×2 (09:03→17:16)
[2023-03-23] MEDS: IRON SUCROSE 100 MG in SODIUM CHLORIDE 0.9% 100 ML IV SCH (09:04)
[2023-03-23] MEDS: SODIUM CHLORIDE 0.9% 1000ML 1,000 ML IV SCH ×2 (13:15→21:15)
[2023-03-23] MEDS: PHENAZOPYRIDINE HCL 100 MG TAB PO PRN (23:54)
[2023-03-24] VITALS (7 sets, daily range): BP systolic 120–142; BP diastolic 71–91
[2023-03-24] MEDS: SODIUM CHLORIDE 0.9% 1000ML 1,000 ML IV SCH ×2 (05:00→08:22)
[2023-03-24] MEDS ORDERED: SODIUM CHLORIDE 0.9% 100 ML ONE (08:03)
[2023-03-24] MEDS: IRON SUCROSE 100 MG in SODIUM CHLORIDE 0.9% 100 ML IV SCH (08:21)
[2023-03-24] MEDS: DOCUSATE SODIUM 100 MG CAP PO SCH ×2 (08:22→17:31)
[2023-03-24] MEDS: METOPROLOL SUCCINATE 25 MG TAB XL PO SCH ×2 (08:22→17:31)
== END 2023-03-24 20:21 | disposition home or self-care (01) | DRG 713 ==
LOC: OR 12:15 → PACU V 16:25 → MED/SURG 17:40
PROVIDERS: ADMIT Urology; ATTEND Urology
PROC: 0T788ZZ Dilation of Bilateral Ureters, Via Natural or Artificial Opening Endoscopic (ICD-10-PCS; 2023-03-19)
PROC: BT141ZZ Fluoroscopy of Kidneys, Ureters and Bladder using Low Osmolar Contrast (ICD-10-PCS; 2023-03-19)
PROC: 0VB08ZX Excision of Prostate, Via Natural or Artificial Opening Endoscopic, Diagnostic (ICD-10-PCS; principal; 2023-03-19 14:10)
PROC: 0VB08ZZ Excision of Prostate, Via Natural or Artificial Opening Endoscopic (ICD-10-PCS; 2023-03-19 14:10)
DX: N40.1 Benign prostatic hyperplasia with lower urinary tract symptoms (principal); N13.8 Other obstructive and reflux uropathy; T83.518A Infection and inflammatory reaction due to other urinary catheter, initial encounter; N39.0 Urinary tract infection, site not specified; R31.0 Gross hematuria; R97.20 Elevated prostate specific antigen [PSA]; E11.22 Type 2 diabetes mellitus with diabetic chronic kidney disease; I12.9 Hypertensive chronic kidney disease with stage 1 through stage 4 chronic kidney disease, or unspecified chronic kidney disease; N18.30 Chronic kidney disease, stage 3 unspecified; E83.42 Hypomagnesemia
CPT/HCPCS: 0223U; 36415; 74420; 76872; 76998; 80048; 83735; 85025; 86850; 86900; 86920; 86945; 88305; 93005; 94799; 96361; C1758; J1100; J1200; J1580; J1756; J1940; J2001; J2175; J2185; J2250; J2270; J2405; J2543; J3475; J7030; J7050; P9016; Q0162